=== PATIENT | male | born 2000 | race Two or more races ===

== ENCOUNTER 2024-07-22 06:33 | Day surgery (SDC) | payer OTHER ==
[2024-07-22] MEDS ORDERED: LIDOCAINE 1%/EPI 1:100000 (20 ML MULTI DOSE VIAL) ONE (08:26)
[2024-07-22 08:52] VITALS: BMI 32.3
[2024-07-22] MEDS ORDERED: MIDAZOLAM HCL 2 MG/2 ML SINGLE DOSE VIAL ONE (09:16)
[2024-07-22] MEDS ORDERED: PROPOFOL 40 ML ONE (09:17)
[2024-07-22] MEDS ORDERED: ROCURONIUM BROMIDE 50 MG/5 ML SYRINGE ONE (09:18)
[2024-07-22] MEDS ORDERED: LIDOCAINE HCL/PF 2% SDV 5ML VIAL ONE (09:18)
[2024-07-22] MEDS ORDERED: SUGAMMADEX SODIUM 200 MG/2 ML VIAL ONE (09:19)
[2024-07-22] MEDS ORDERED: DEXMEDETOMIDINE HCL 200 MCG/2 ML IVPB ONE (09:23)
[2024-07-22] MEDS: ceFAZolin SODIUM 1 GM VIAL IVPB ONE (10:52)
[2024-07-22] MEDS ORDERED: ceFAZolin SODIUM 1 GM VIAL ONE (10:57)
[2024-07-22] MEDS: LIDOCAINE 2%/EPINEPHRINE 1:100000 (50 ML MD VIAL) INF ONE ×2 (11:49)
[2024-07-22] MEDS ORDERED: DEXAMETHASONE SOD PHOSPHATE 4 MG/1 ML VIAL ONE (12:55)
[2024-07-22] MEDS ORDERED: ONDANSETRON 4 MG/2 ML VIAL ONE (12:55)
[2024-07-22] MEDS ORDERED: ONDANSETRON 4 MG/2 ML VIAL IVPUSH PRN (13:03)
[2024-07-22] MEDS ORDERED: LACTATED RINGERS SOLUTION 1,000 ML IV SCH (13:15)
[2024-07-22 14:57] VITALS: RESP 16
[2024-07-22 15:48] VITALS: BP 140/91; PULSE 75; TEMP 98.6
== END 2024-07-22 15:40 | disposition home or self-care (01) ==
LOC: JASU-SURG 06:33
PROVIDERS: ATTEND Otolaryngology
PROC: 099Q8ZZ Drainage of Right Maxillary Sinus, Via Natural or Artificial Opening Endoscopic (ICD-10-PCS; 2024-07-22)
PROC: 09TV8ZZ Resection of Left Ethmoid Sinus, Via Natural or Artificial Opening Endoscopic (ICD-10-PCS; 2024-07-22)
PROC: 09TU8ZZ Resection of Right Ethmoid Sinus, Via Natural or Artificial Opening Endoscopic (ICD-10-PCS; 2024-07-22)
PROC: 09QL8ZZ Repair Nasal Turbinate, Via Natural or Artificial Opening Endoscopic (ICD-10-PCS; 2024-07-22)
PROC: 8E09XBZ Computer Assisted Procedure of Head and Neck Region (ICD-10-PCS; 2024-07-22)
PROC: 099R8ZZ Drainage of Left Maxillary Sinus, Via Natural or Artificial Opening Endoscopic (ICD-10-PCS; principal; 2024-07-22 10:00)
DX: J34.3 Hypertrophy of nasal turbinates (principal); J32.8 Other chronic sinusitis; J33.0 Polyp of nasal cavity
CPT/HCPCS: 86850; 86900; 86901; 88304-TC; 88311-TC; 94760